=== PATIENT | male | born 1975 | race Caucasian/White ===

== ENCOUNTER 2021-09-02 19:32 | Inpatient (IN) ==
[2021-09-02] MEDS ORDERED: *HR* HYDROmorphone (PF) 1 MG/ML SYRINGE IVP ONE (22:33)
[2021-09-02] MEDS ORDERED: Isovue-370 500 ML BOTTLE IVP ONE (22:33)
[2021-09-02] MEDS ORDERED: diazePAM 10 MG/2 ML SYRINGE IVP ONE (22:34)
[2021-09-02 23:05] LABS: Basophils # 0.1 K/mcL (0.0-0.2); Basophils % 0.9 %; Eosinophils # 0.3 K/mcL (0.0-0.6); Hematocrit 49.4 % (37.5-50.1); Hemoglobin 16.8 g/dL (12.9-16.9); Immature Granulocytes % 0.2 % (0-4); Lymphocytes # 2.9 K/mcL (0.6-4.6); Lymphocytes % 29.2 %; Mean Corpuscular Hemoglobin 30.4 pg (28.0-33.3); Mean Corpuscular Volume 89.3 fL (83.0-100.0); Mean Platelet Volume 9.5 fL (9.4-12.4); Monocytes # 0.8 K/mcL (0.0-1.3); Monocytes % 7.6 %; Neutrophils # 5.9 K/mcL (1.6-8.9); Platelet Count 266 K/mcL (140-400); Red Blood Count 5.53 M/mcL (4.19-5.50); Red Cell Distribution Width 12.8 % (11.5-14.5); Segmented Neutrophils % 59.1 %
[2021-09-02 23:21] LABS: Alanine Aminotransferase 11 Units/L (7-52); Albumin 4.4 g/dL (3.5-5.7); Albumin/Globulin Ratio 1.3 (1.1-2.2); Alkaline Phosphatase 66 Units/L (34-104); Aspartate Amino Transferase 18 Units/L (13-39); BUN/Creatinine Ratio 4 (6-26); Bilirubin,Total 0.7 mg/dL (0.3-1.0); Blood Urea Nitrogen 3 mg/dL (6-20); Carbon Dioxide 29 mEq/L (23-29); Chloride 95 mEq/L (98-107); Creatine Kinase 95 Units/L (30-223); Globulin 3.3 g/dL (2.4-3.5); Glucose 91 mg/dL (70-105); Magnesium 1.7 mg/dL (1.6-2.6); Osmolality,Calculated 268 (280-300); Potassium 4.3 mEq/L (3.5-5.1); Sodium 131 mEq/L (136-145); Total Protein 7.7 g/dL (6.4-8.9); eGFR For African Americans > 60 (> 60); eGFR For Non-African Americans > 60 (> 60)
[2021-09-03] MEDS ORDERED: *HR* Heparin 5,000 UNIT/ML VIAL IVP ONE (00:37)
[2021-09-03] MEDS ORDERED: *HR* Heparin 5,000 UNIT/ML VIAL IVP PRN ×4 (00:37→23:44)
[2021-09-03] MEDS ORDERED: *HR* HYDROmorphone (PF) 1 MG/ML SYRINGE IVP ONE (00:39)
[2021-09-03] MEDS ORDERED: Heparin 25,000UNIT/250ML 1/2NS 25,000 UNIT/250 ML IV.SOLN IVC SCH ×2 (00:45→23:44)
[2021-09-03 01:26] LABS: Heparin anti-factor XA UFH < 0.04 IU/mL (0.30-0.70)
[2021-09-03 01:30] LABS: INR 1.1; Prothrombin Time 12.2 Seconds (9.4-12.1)
[2021-09-03] MEDS ORDERED: *HR* OxyCODONE Immed Rel 15 MG TABLET PO ONE (03:26)
[2021-09-03] MEDS ORDERED: *HR* OxyCODONE Immed Rel 5 MG TABLET PO PRN (03:32)
[2021-09-03] MEDS ORDERED: Acetaminophen 325 MG TABLET PO PRN ×2 (03:32→23:44)
[2021-09-03] MEDS ORDERED: Ondansetron 4 MG/2 ML VIAL IVP PRN ×2 (03:32→23:44)
[2021-09-03] MEDS ORDERED: Naloxone 0.4 MG/ML INJ IVP PRN ×3 (03:32→23:44)
[2021-09-03] MEDS ORDERED: *HR* Labetalol 20 MG/4 ML SYRINGE IVP ONE (04:38)
[2021-09-03] MEDS: Famotidine 20 MG/2 ML VIAL IVP SCH ×2 (05:26→23:08)
[2021-09-03] MEDS ORDERED: *HR* LORazepam 2 MG/ML VIAL IVP ONE (05:39)
[2021-09-03 08:08] LABS: Chol/HDL Ratio 2.4 (0-4.9)
[2021-09-03 08:10] LABS: Hematocrit 46.8 % (37.5-50.1); Hemoglobin 15.9 g/dL (12.9-16.9); Mean Corpuscular Hemoglobin 29.9 pg (28.0-33.3); Mean Corpuscular Volume 88.1 fL (83.0-100.0); Mean Platelet Volume 10.1 fL (9.4-12.4); Platelet Count 247 K/mcL (140-400); Red Blood Count 5.31 M/mcL (4.19-5.50); Red Cell Distribution Width 12.8 % (11.5-14.5); White Blood Count 7.7 K/mcL (4.3-11.1)
[2021-09-03 08:11] LABS: BUN/Creatinine Ratio 5 (6-26); Blood Urea Nitrogen 3 mg/dL (6-20); Calcium 9.7 mg/dL (8.6-10.3); Carbon Dioxide 26 mEq/L (23-29); Chloride 99 mEq/L (98-107); Glucose 96 mg/dL (70-105); Osmolality,Calculated 272 (280-300); Sodium 133 mEq/L (136-145); eGFR For African Americans > 60 (> 60); eGFR For Non-African Americans > 60 (> 60)
[2021-09-03] MEDS ORDERED: Aspirin Enteric Coated 81 MG Tablet PO SCH (09:00)
[2021-09-03 09:05] LABS: Estimated Average Glucose 103 mg/dl; Hemoglobin A1C 5.2 %
[2021-09-03] MEDS: *HR* HYDROcodone/Acet 5/325 mg TABLET PO PRN ×2 (09:05→15:52)
[2021-09-03] MEDS ORDERED: CeFAZolin Syr 2,000MG/20 ML 2,000 MG/20 ML SYRINGE IVPB PRN ×2 (09:14→23:44)
[2021-09-03] MEDS ORDERED: Lidocaine HCL 4 ML Topical Solution (Laryng-O-Jet Kit Sterile Pak) TP ONE (16:07)
[2021-09-03] MEDS ORDERED: Lidocaine -MPF 2% 2 ML VIAL ONE ×2 (16:07→21:02)
[2021-09-03] MEDS ORDERED: *HR* Succinylcholine 200 MG/10 ML VIAL IVP ONE (16:07)
[2021-09-03] MEDS ORDERED: *HR* Propofol 200 MG/20 ML VIAL IVP ONE ×2 (16:07→21:22)
[2021-09-03] MEDS ORDERED: Ondansetron 4 MG/2 ML VIAL ONE (16:07)
[2021-09-03] MEDS ORDERED: *HR* Rocuronium Bromide 50 MG/5 ML VIAL ONE ×3 (16:08→20:28)
[2021-09-03] MEDS ORDERED: Ketamine HCL *QUVA* 50mg (1mL) SYRINGE ONE (18:01)
[2021-09-03] MEDS ORDERED: Dexmedetomidine HCl 400 MCG/100 ML MLS IVC ONE (18:01)
[2021-09-03] MEDS ORDERED: Heparin 1,000 UNITS/500 mL 500 ML ONE ×2 (18:14→20:13)
[2021-09-03] MEDS ORDERED: Protamine Sulfate 50 MG/5 ML VIAL IVP ONE (18:14)
[2021-09-03] MEDS ORDERED: Isovue-300 50ML VIAL ONE ×2 (19:44→20:14)
[2021-09-03] MEDS ORDERED: *HR* Magnesium Sulfate 1 GM/2 ML VIAL ONE (19:57)
[2021-09-03] MEDS ORDERED: Sugammadex Sodium 200 MG/2 ML VIAL IV ONE (21:03)
[2021-09-03] MEDS ORDERED: EPHEDrine 50 MG/ML VIAL ONE (21:04)
[2021-09-03] MEDS ORDERED: *HR* HYDROMORPHONE 2 MG/ML VIAL ONE (21:16)
[2021-09-03] MEDS ORDERED: *HR* FentaNYL (PF) 100 MCG/2 ML VIAL IVP PRN (22:26)
[2021-09-03] MEDS: *HR* HYDROmorphone PF 0.5 MG/0.5 ML SYRINGE IVP PRN ×2 (22:31→22:37)
[2021-09-03] MEDS ORDERED: *HR* Labetalol 20 MG/4 ML SYRINGE IVP PRN (23:44)
[2021-09-03] MEDS ORDERED: *HR* HYDROcodone/Acet 5/325 mg TABLET PO PRN (23:44)
[2021-09-03] MEDS ORDERED: 0.9 % Sodium Chloride 1,000 ML IVC SCH (23:44)
[2021-09-04] MEDS ORDERED: CeFAZolin 2 GM/120 ML BAG IVPB SCH
[2021-09-04] MEDS: *HR* OxyCODONE Immed Rel 5 MG TABLET PO PRN ×2 (00:42→06:41)
[2021-09-04] MEDS: CeFAZolin 2 GM/120 ML BAG IVPB SCH ×2 (01:45→08:23)
[2021-09-04] MEDS ORDERED: Famotidine 20 MG/2 ML VIAL IVP SCH (06:00)
[2021-09-04 06:15] LABS: Hematocrit 45.1 % (37.5-50.1); Hemoglobin 15.5 g/dL (12.9-16.9); Mean Corpuscular HGB Conc 34.4 g/dL (31.6-35.5); Mean Corpuscular Hemoglobin 30.5 pg (28.0-33.3); Mean Corpuscular Volume 88.8 fL (83.0-100.0); Mean Platelet Volume 9.4 fL (9.4-12.4); Platelet Count 224 K/mcL (140-400); Red Blood Count 5.08 M/mcL (4.19-5.50); Red Cell Distribution Width 12.5 % (11.5-14.5); White Blood Count 8.2 K/mcL (4.3-11.1)
[2021-09-04 06:17] LABS: Basophils % 0.4 %; Eosinophils % 0.1 %; Hemoglobin 15.5 g/dL (12.9-16.9); Immature Granulocytes % 0.4 % (0-4); Lymphocytes # 1.4 K/mcL (0.6-4.6); Lymphocytes % 16.8 %; Mean Corpuscular HGB Conc 34.4 g/dL (31.6-35.5); Mean Corpuscular Hemoglobin 30.7 pg (28.0-33.3); Mean Corpuscular Volume 89.1 fL (83.0-100.0); Mean Platelet Volume 9.7 fL (9.4-12.4); Monocytes # 0.6 K/mcL (0.0-1.3); Monocytes % 7.5 %; Neutrophils # 6.2 K/mcL (1.6-8.9); Platelet Count 228 K/mcL (140-400); Red Blood Count 5.05 M/mcL (4.19-5.50); Red Cell Distribution Width 12.5 % (11.5-14.5); Segmented Neutrophils % 74.8 %; White Blood Count 8.3 K/mcL (4.3-11.1)
[2021-09-04 06:40] LABS: BUN/Creatinine Ratio 7 (6-26); Blood Urea Nitrogen 5 mg/dL (6-20); Calcium 9.2 mg/dL (8.6-10.3); Carbon Dioxide 25 mEq/L (23-29); Chloride 101 mEq/L (98-107); Glucose 143 mg/dL (70-105); Magnesium 1.9 mg/dL (1.6-2.6); Osmolality,Calculated 278 (280-300); Phosphorous 3.8 mg/dL (2.7-4.5); Sodium 134 mEq/L (136-145); eGFR For African Americans > 60 (> 60); eGFR For Non-African Americans > 60 (> 60)
[2021-09-04 08:19] VITALS: BP 106/74; PULSE 72; TEMP 98.1; O2SAT 90
[2021-09-04] MEDS ORDERED: Aspirin Enteric Coated 81 MG Tablet PO SCH (09:00)
[2021-09-04] MEDS ORDERED: Gabapentin 100 MG CAPSULE PO SCH (09:45)
== END 2021-09-04 10:35 | disposition left against medical advice (07) | DRG 169 ==
LOC: 3NENU 19:32 → EMEROOARM 19:32 → SUATTDRO 09-03 01:36 → 3NENU 09-03 02:35 → 2NNU 09-03 21:02
PROVIDERS: ADMIT Student in an Organized Health Care Education/Training Program; ATTEND Internal Medicine

== ENCOUNTER 2021-09-06 00:46 | Inpatient (IN) ==
[2021-09-06] MEDS ORDERED: Isovue-370 500 ML BOTTLE IVP ONE (02:15)
[2021-09-06] MEDS ORDERED: *HR* HYDROmorphone (PF) 1 MG/ML SYRINGE IVP ONE ×2 (02:21→04:49)
[2021-09-06 03:04] LABS: Basophils # 0.1 K/mcL (0.0-0.2); Basophils % 0.8 %; Eosinophils # 0.4 K/mcL (0.0-0.6); Eosinophils % 4.4 %; Hematocrit 42.8 % (37.5-50.1); Hemoglobin 14.6 g/dL (12.9-16.9); Immature Granulocytes % 0.2 % (0-4); Lymphocytes % 32.2 %; Mean Corpuscular HGB Conc 34.1 g/dL (31.6-35.5); Mean Corpuscular Volume 90.9 fL (83.0-100.0); Mean Platelet Volume 9.7 fL (9.4-12.4); Monocytes # 0.9 K/mcL (0.0-1.3); Monocytes % 9.7 %; Neutrophils # 4.9 K/mcL (1.6-8.9); Platelet Count 226 K/mcL (140-400); Red Blood Count 4.71 M/mcL (4.19-5.50); Red Cell Distribution Width 12.8 % (11.5-14.5); Segmented Neutrophils % 52.7 %; White Blood Count 9.2 K/mcL (4.3-11.1)
[2021-09-06 03:12] LABS: Alanine Aminotransferase 20 Units/L (7-52); Albumin 3.8 g/dL (3.5-5.7); Albumin/Globulin Ratio 1.4 (1.1-2.2); Alkaline Phosphatase 55 Units/L (34-104); Aspartate Amino Transferase 76 Units/L (13-39); BUN/Creatinine Ratio 7 (6-26); Bilirubin,Total 0.5 mg/dL (0.3-1.0); Blood Urea Nitrogen 4 mg/dL (6-20); Calcium 9.2 mg/dL (8.6-10.3); Carbon Dioxide 31 mEq/L (23-29); Chloride 97 mEq/L (98-107); Globulin 2.7 g/dL (2.4-3.5); Glucose 96 mg/dL (70-105); Osmolality,Calculated 275 (280-300); Potassium 3.7 mEq/L (3.5-5.1); Sodium 134 mEq/L (136-145); Total Protein 6.5 g/dL (6.4-8.9); eGFR For African Americans > 60 (> 60); eGFR For Non-African Americans > 60 (> 60)
[2021-09-06] MEDS ORDERED: *HR* Heparin 5,000 UNIT/ML VIAL IVP PRN ×4 (04:46→17:49)
[2021-09-06] MEDS ORDERED: *HR* Heparin 5,000 UNIT/ML VIAL IVP ONE (04:46)
[2021-09-06] MEDS ORDERED: diazePAM 10 MG/2 ML SYRINGE IVP ONE (04:50)
[2021-09-06] MEDS ORDERED: Ondansetron 4 MG/2 ML VIAL IVP PRN ×3 (04:53→17:49)
[2021-09-06] MEDS ORDERED: *HR* Promethazine 25 MG/ML VIAL IM PRN (04:53)
[2021-09-06] MEDS ORDERED: Naloxone 0.4 MG/ML INJ IVP PRN ×2 (04:53→17:49)
[2021-09-06] MEDS ORDERED: Acetaminophen 325 MG TABLET PO PRN ×2 (04:53→17:49)
[2021-09-06] MEDS ORDERED: *HR* OxyCODONE Immed Rel 5 MG TABLET PO PRN (04:53)
[2021-09-06] MEDS ORDERED: *HR* HYDROcodone/Acet 5/325 mg TABLET PO PRN (04:53)
[2021-09-06] MEDS ORDERED: Melatonin 3 MG TABLET PO PRN ×2 (04:53→17:49)
[2021-09-06] MEDS ORDERED: Heparin 25,000UNIT/250ML 1/2NS 25,000 UNIT/250 ML IV.SOLN IVC SCH ×2 (05:00→17:49)
[2021-09-06 05:37] LABS: Heparin anti-factor XA UFH < 0.04 IU/mL (0.30-0.70)
[2021-09-06 05:39] LABS: Activated Partial Thrombo Time 31.7 Seconds (26.0-36.0)
[2021-09-06 06:16] LABS: Influenza A PCR Negative (Negative); Influenza B PCR Negative (Negative); Resp. Syncytial Virus PCR Negative (Negative)
[2021-09-06 06:18] LABS: SARS-CoV-2 by PCR (In House) Negative (Negative)
[2021-09-06] MEDS ORDERED: Aspirin Enteric Coated 81 MG Tablet PO SCH (09:00)
[2021-09-06] MEDS ORDERED: Budesonide/Formoterol 80/4.5 1 PUFF INH IH SCH (10:00)
[2021-09-06] MEDS ORDERED: Bupivacaine-MPF 0.25% 10 ML VIAL ONE (12:53)
[2021-09-06] MEDS ORDERED: Heparin 1,000 UNITS/500 mL 500 ML ONE (12:54)
[2021-09-06] MEDS ORDERED: Vancomycin 1,000 MG VIAL ONE (12:54)
[2021-09-06] MEDS ORDERED: Vancomycin 1,000 MG, Sodium Chloride IRRigation 1,000 ML IR ONE (13:00)
[2021-09-06] MEDS ORDERED: Lidocaine HCL 4 ML Topical Solution (Laryng-O-Jet Kit Sterile Pak) TP ONE (13:27)
[2021-09-06] MEDS ORDERED: CeFAZolin Syr 2,000MG/20 ML 2,000 MG/20 ML SYRINGE IVPB ONE (13:29)
[2021-09-06] MEDS ORDERED: *HR* Succinylcholine 200 MG/10 ML VIAL IVP ONE (13:31)
[2021-09-06] MEDS ORDERED: *HR* Rocuronium Bromide 50 MG/5 ML VIAL ONE (13:31)
[2021-09-06] MEDS ORDERED: Ondansetron 4 MG/2 ML VIAL ONE (13:31)
[2021-09-06] MEDS ORDERED: *HR* Propofol 200 MG/20 ML VIAL IVP ONE (13:32)
[2021-09-06] MEDS ORDERED: Vancomycin (wt based) 1,000 MG VIAL IV ONE (14:00)
[2021-09-06] MEDS ORDERED: *HR* Meperidine 25 MG/ML SYRINGE IVP PRN (14:28)
[2021-09-06] MEDS ORDERED: Albuterol 2.5 MG/3 ML NEBULIZER IH PRN (14:28)
[2021-09-06] MEDS ORDERED: *HR* HYDROmorphone PF 0.5 MG/0.5 ML SYRINGE IVP PRN (14:28)
[2021-09-06] MEDS ORDERED: *HR* Midazolam HCl 2 MG/2 ML VIAL ONE (14:39)
[2021-09-06] MEDS ORDERED: *HR* FentaNYL (PF) 100 MCG/2 ML VIAL ONE (14:39)
[2021-09-06] MEDS ORDERED: Ketamine HCL *QUVA* 50mg (1mL) SYRINGE ONE (14:39)
[2021-09-06] MEDS ORDERED: EPHEDrine 50 MG/ML VIAL ONE (15:10)
[2021-09-06] MEDS ORDERED: Acetaminophen IV 1,000 MG/100 ML BAG IVPB ONE (15:29)
[2021-09-06] MEDS ORDERED: *HR* Heparin 5,000 UNIT/ML VIAL ONE (15:38)
[2021-09-06] MEDS ORDERED: Perflutren Lipid Microsphere 1.3 ML in 0.9 % Sodium Chloride 8.7 ML IVP PRN (16:35)
[2021-09-06] MEDS ORDERED: 0.9 % Sodium Chloride 1,000 ML IVC SCH (17:49)
[2021-09-06] MEDS: *HR* OxyCODONE Immed Rel 5 MG TABLET PO PRN (18:01)
[2021-09-06] MEDS: Budesonide/Formoterol 80/4.5 1 PUFF INH IH SCH (20:22)
[2021-09-06] MEDS: *HR* HYDROcodone/Acet 5/325 mg TABLET PO PRN (21:01)
[2021-09-06] MEDS: CeFAZolin 2 GM/120 ML BAG IVPB SCH (23:48)
[2021-09-07] MEDS: *HR* OxyCODONE Immed Rel 5 MG TABLET PO PRN ×2 (00:01→06:14)
[2021-09-07 02:02] LABS: Basophils % 0.2 %; Eosinophils % 0.2 %; Hematocrit 40.7 % (37.5-50.1); Hemoglobin 13.7 g/dL (12.9-16.9); Immature Granulocytes % 0.4 % (0-4); Lymphocytes # 0.9 K/mcL (0.6-4.6); Lymphocytes % 16.2 %; Mean Corpuscular HGB Conc 33.7 g/dL (31.6-35.5); Mean Corpuscular Hemoglobin 30.1 pg (28.0-33.3); Mean Corpuscular Volume 89.5 fL (83.0-100.0); Mean Platelet Volume 10.1 fL (9.4-12.4); Monocytes # 0.2 K/mcL (0.0-1.3); Monocytes % 4.1 %; Neutrophils # 4.4 K/mcL (1.6-8.9); Platelet Count 206 K/mcL (140-400); Red Blood Count 4.55 M/mcL (4.19-5.50); Red Cell Distribution Width 12.4 % (11.5-14.5); Segmented Neutrophils % 78.9 %; White Blood Count 5.6 K/mcL (4.3-11.1)
[2021-09-07 02:06] LABS: BUN/Creatinine Ratio 10 (6-26); Blood Urea Nitrogen 6 mg/dL (6-20); Calcium 8.8 mg/dL (8.6-10.3); Carbon Dioxide 26 mEq/L (23-29); Chloride 101 mEq/L (98-107); Glucose 178 mg/dL (70-105); Osmolality,Calculated 280 (280-300); Potassium 4.1 mEq/L (3.5-5.1); Sodium 134 mEq/L (136-145); eGFR For African Americans > 60 (> 60); eGFR For Non-African Americans > 60 (> 60)
[2021-09-07 02:07] LABS: Heparin anti-factor XA UFH 0.33 IU/mL (0.30-0.70)
[2021-09-07 02:08] LABS: Prothrombin Time 11.4 Seconds (9.4-12.1)
[2021-09-07] MEDS: *HR* HYDROcodone/Acet 5/325 mg TABLET PO PRN (03:09)
[2021-09-07] MEDS: CeFAZolin 2 GM/120 ML BAG IVPB SCH (06:14)
[2021-09-07 06:50] VITALS: BP 157/92; PULSE 56; TEMP 97.6
[2021-09-07] MEDS: Budesonide/Formoterol 80/4.5 1 PUFF INH IH SCH (08:05)
[2021-09-07 08:07] VITALS: O2SAT 97
[2021-09-07] MEDS ORDERED: Aspirin Enteric Coated 81 MG Tablet PO SCH (09:00)
== END 2021-09-07 12:30 | disposition left against medical advice (07) | DRG 181 ==
LOC: 3NENU 00:46 → EMEROOARM 00:46 → 3NENU 05:46 → 2NNU 17:42
PROVIDERS: ADMIT Internal Medicine; ATTEND Internal Medicine